=== PATIENT | female | born 1985 | race Hispanic/Latino ===

== ENCOUNTER 2025-03-20 13:36 | Emergency (ER) | payer OTHER, SELFPAY ==
[2025-03-20 13:51] VITALS: BP 123/74
[2025-03-20 14:15] LABS: % Basophils 0.3 % (0-2); % Eosinophils 0.5 % (0-6); % Immature Granulocytes 0.3 % (0-0.5); % Lymphocytes 16.2 % (20.5-51.1); % Monocytes 3.5 % (1.7-9.3); % Neutrophils 79.2 % (42.2-75.2); Absolute Eosinophils 0.1 10^3/uL (0-0.7); Absolute Monocytes 0.4 10^3/uL (0.1-0.6); Absolute Neutrophils 9.6 10^3/uL (1.4-6.5); Hematocrit 39.1 % (37.0-47.0); Hemoglobin 13.6 g/dL (12.0-16.0); Mean Corp Hgb Conc. 34.8 g/dL (33.0-37.0); Mean Corpuscular Hgb 30.1 pg (27.0-31.0); Mean Corpuscular Volume 86.5 fL (81.0-99.0); Mean Platelet Volume 10.3 fL (7.4-10.4); Nucleated Red Blood Cells % 0 %; Platelet Count 267 10^3/uL (130-400); Red Blood Cell Count 4.52 10^6/uL (4.20-5.40); Red Cell Dist. Width 13.1 % (11.5-14.5); White Blood Cell Count 12.1 10^3/uL (4.8-10.8)
[2025-03-20 14:39] LABS: ALT (SGPT) 57 U/L (0-35); AST (SGOT) 42 U/L (14-36); Albumin 3.8 g/dl (3.5-5.0); Alkaline Phosphatase 110 U/L (38-126); Blood Urea Nitrogen 12 mg/dl (7-17); Calcium 9.2 mg/dl (8.4-10.2); Carbon Dioxide 25 mmol/L (22-30); Chloride 105 mmol/L (98-107); Glucose 221 mg/dl (70-99); HCG, Serum Qualitative Screen Negative; Potassium 4.6 mmol/L (3.5-5.1); Sodium 137 mmol/L (135-145); Total Bilirubin 1.4 mg/dl (0.2-1.3); Total Protein 7.3 g/dl (6.3-8.2); eGFR > 60.00
[2025-03-20 14:47] LABS: COVID-19 Antigen Negative (Negative)
--- NOTE | 2025-03-20 17:12 | ED.GENMED ---
History of Present Illness
General
Chief Complaint: Abdominal Symptoms
Source: patient
Exam Limitations: none
Time Seen by Provider: 03/20/25 16:52
History of Present Illness
History of Present Illness:
39-year-old female presents with onset nausea vomiting slight headache and diarrhea today. She notes chills. She denies abdominal pain. She also notes pain in her mouth. Her son is sick with a cold at home. Patient denies a cough or shortness
of breath. No other complaints at this time
Past History
Past History
ED Past Medical History: Other ( diabetes, now resolved)
ED Past Surgical History:
Social History
Tobacco: Non-smoker
Alcohol: None
Drug: None
Personal:
Living: with family
Employment: Employed
Family History
Family History: Other (Noncontributory)
Phy Exam
Physical Exam
Physical Exam:
General: Well-appearing female no acute respiratory distress
HEENT: Normocephalic atraumatic dentition appears well
Heart: Regular rate and rhythm
Lungs: Clear no wheeze
Abdomen is soft nontender nondistended no guarding or rebound
Extremities: No sign of
Course
Orders/Labs/Results
Orders:
Orders
03/20/25 13:55
Electrocardiogram (*1) Urgent
Reason for Study: Fatigue / Weakness
03/20/25 13:56
EKG- Treatment ONCE
Test Result ONCE
03/20/25 14:01
CMP [Comprehensive Metabolic Panel] Urgent
COVID-19 Antigen Urgent
Source: Nasal Swab
Complete Blood Count/With Diff Urgent
HCG, Serum Qualitative Screen Urgent
INF RAPID [Influenza A+B Rapid Molecular] Urgent
STEFFANY Source: Nasal Swab
Specimen Description:
03/20/25 17:02
0.9% Sodium Chloride 1000 ml [Nss] 1,000 ml IV BOLUS
Ketorolac [Toradol] 15 mg IV NOW STA
Ondansetron Injectable [Zofran] 4 mg IV NOW STA
Abnormal Lab Results
03/20/25
14:01
WBC 12.1 H 10^3/uL
(4.8-10.8)
Absolute Neuts (auto) 9.6 H 10^3/uL
(1.4-6.5)
Neutrophils % 79.2 H %
(42.2-75.2)
Lymphocytes % 16.2 L %
(20.5-51.1)
Creatinine 0.4 L mg/dL
(0.6-1.0)
Glucose 221 H mg/dl
(70-99)
Total Bilirubin 1.4 H mg/dl
(0.2-1.3)
AST 42 H U/L
(14-36)
ALT 57 H U/L
(0-35)
03/20/25 14:01
03/20/25 14:01
Vital Signs
Initial and Last Documented VS:
Initial Vital Signs
Temp Pulse Resp BP Pulse Ox
97.7 F 44 15 123/74 100
03/20/25 13:51 03/20/25 13:51 03/20/25 13:51 03/20/25 13:51 03/20/25 13:51
Last Documented Vital Signs
Temp Pulse Resp BP Pulse Ox
98.5 F 52 20 117/66 100
03/20/25 17:28 03/20/25 17:28 03/20/25 17:28 03/20/25 17:28 03/20/25 17:28
MDM/Problems Addressed
Differential Diagnosis Includes:
Nausea vomiting diarrhea headache. Question viral illness. No meningeal signs on exam. Abdomen exam is benign. Will check labs for electrolyte abnormality but will treat symptomatically with Toradol Zofran and fluid
COVID and flu test are negative. Labs reviewed without significant finding
*Critical Care Note
Total Time (30-74mins, 75-104mins- exclusive of procedures): Not Applicable
Update Note
Update Note:
Patient feeling much better after Toradol Zofran and fluids. I suspect underlying viral illness. Will prescribe Zofran for use at home. Stable for discharge
ED Attending Note
-
Portions of this chart may have been created with voice recognition software.� Occasional wrong word or��sound alike� substitutions may have occurred due to the inherent limitations of voice recognition software.
Discharge Plan
Departure
Patient Disposition: Home (Routine Discharge)
Date of Disposition: 03/20/25
Time of Disposition: 18:22
Patient with high blood pressure during this ER visit?: No
Discharge Problem:
Vomiting
Instructions: Nausea and Vomiting, Adult (DC)
Prescriptions:
New
ondansetron 4 mg tablet,disintegrating
4 mg PO Q8H PRN (Reason: nausea and vomiting) Qty: 10 0RF
No Action
acetaminophen-codeine 1 TABLET tablet
1 tab PO Q4HPRN PRN (Reason: pain) Qty: 7 0RF
ibuprofen [Advil] 200 mg tablet
600 mg PO Q8H PRN (Reason: pain) Qty: 20 0RF
Referrals:
Fabrice Terry MD [Family Provider] -
Activity Restrictions/Additional Instructions:
Rest. Drink plenty fluids. Use Zofran if needed for nausea. Return if worse otherwise follow-up with your doctor
Interventions
Interventions:
*Risk Screen - Suicide Last Done: 03/20/25 13:53
*General Assessment Last Done: 03/20/25 17:28
*Neglect/Abuse Screening Last Done: 03/20/25 13:53
*ED- Fall Risk Assessment Last Done: 03/20/25 17:28
*ED COVID-19 Vaccine History Last Done: 03/20/25 17:28
EN-Pttrba-[id number] Assessment Last Done: 03/20/25 17:28
Discharge Date and Time
Print Language: YAKUT
[2025-03-20] MEDS: TORADOL 15 MG IV (17:21)
[2025-03-20] MEDS: ZOFRAN 4 MG IV (17:22)
[2025-03-20] MEDS: NSS 1000 IV (17:22)
[2025-03-20 17:28] VITALS: BP 117/66; BMI 29.4
== END 2025-03-20 18:30 | disposition home or self-care (01) ==
LOC: EMR 13:36
PROVIDERS: EMERGENCY PHYSICIAN Student in an Organized Health Care Education/Training Program; FAMILY PHYSICIAN Internal Medicine
DX: R11.2 Nausea with vomiting, unspecified (principal); R51.9 Headache, unspecified; R19.7 Diarrhea, unspecified; Z11.52 Encounter for screening for COVID-19
CPT/HCPCS: 96374; 96375; 96361; 99284; 80053; 84703; 85025; 87502; 87811; 93005